=== PATIENT | female | born 1955 | race Native Hawaiian/Other Pacific Islander ===

== ENCOUNTER 2017-03-16 08:53 | Outpatient (CLI) | payer OTHER | END 2017-03-16 19:43 | disposition home or self-care (01) | LOC: RAD 08:53 | DX: M81.0 Age-related osteoporosis without current pathological fracture (principal) ==

== ENCOUNTER 2017-09-08 13:42 | Emergency (ER) | payer OTHER ==
[~2017-09-08] VITALS: Ht 152.4 cm; Wt 99.8 kg
[2017-09-08 14:44] LABS: PLATELET COUNT 268 K/uL (152-353)
[2017-09-08 14:48] LABS: POTASSIUM 3.4 mmol/L (3.6-5.2); SODIUM 138 mmol/L (136-145)
[2017-09-08 15:49] LABS: PARTIAL THROMBOPLASTIN TIME 24.7 SECONDS (24.5-33.6)
[2017-09-08 17:10] VITALS: BP 180/88; TEMP 98.3
== END 2017-09-08 17:21 | disposition home or self-care (01) ==
LOC: ED 13:42
PROVIDERS: Emergency Medicine
DX: Z91.14 Patient's other noncompliance with medication regimen (principal); I10 Essential (primary) hypertension; L03.116 Cellulitis of left lower limb; L03.115 Cellulitis of right lower limb; M79.605 Pain in left leg; M79.604 Pain in right leg; I50.9 Heart failure, unspecified
CPT/HCPCS: 36415; 80053; 81000; 82550; 83735; 83880; 84484; 85027; 85379; 85610; 85730; 87077; 87086; 87088; 87186; 96374; 96375; 99284; J0360; J1940

== ENCOUNTER 2017-09-13 10:58 | Emergency (ER) | payer OTHER ==
[~2017-09-13] VITALS: Ht 162.6 cm; Wt 90.7 kg
[2017-09-13 11:05] VITALS: BP 154/79; TEMP 97.9
== END 2017-09-13 11:08 | disposition home or self-care (01) ==
LOC: ED 10:58
DX: R51 Headache (principal); R42 Dizziness and giddiness; H53.8 Other visual disturbances

== ENCOUNTER 2018-09-03 16:28 | Inpatient (IN) | payer OTHER ==
[~2018-09-03] VITALS: Ht 152.4 cm; Wt 100.0 kg
[2018-09-03 16:35] VITALS: BP 220/104; TEMP 100.2
[2018-09-03 17:14] LABS: PLATELET COUNT 304 K/uL (152-353)
[2018-09-03 17:58] LABS: POTASSIUM 3.6 mmol/L (3.6-5.2)
[2018-09-03 23:44] VITALS: BP 155/77; TEMP 98.7
[2018-09-04] VITALS (7 sets, daily range): BP systolic 122–192; BP diastolic 60–73; TEMP 98.1–101.7; Ht 152.4 cm; Wt 100.0 kg
[2018-09-04] MEDS ORDERED: REQUIP XL4 MG PO (07:32)
[2018-09-04] MEDS ORDERED: HYDR10TA47A PO (07:32)
[2018-09-04] MEDS ORDERED: TRAZ100T PO (07:34)
[2018-09-04] MEDS ORDERED: MECLIZINE25 M2 PO (07:35)
[2018-09-04] MEDS ORDERED: CARV25TA PO (07:36)
[2018-09-05] VITALS (12 sets, daily range): BP systolic 81–209; BP diastolic 53–95; TEMP 98.1–99
[2018-09-05 09:33] LABS: PLATELET COUNT 331 K/uL (152-353)
[2018-09-05 09:43] LABS: SODIUM 139 mmol/L (136-145)
[2018-09-05 10:50] LABS: PARTIAL THROMBOPLASTIN TIME 28.2 SECONDS (24.5-33.6)
== END 2018-09-05 13:20 | disposition short-term general hospital (02) | DRG 871 ==
LOC: ED 16:28 → MED/SURG 19:05 → ICU 09-05 09:30
PROVIDERS: Internal Medicine
PROC: 05HM33Z Insertion of Infusion Device into Right Internal Jugular Vein, Percutaneous Approach (ICD-10-PCS; principal; 2018-09-05)
PROC: B543ZZA Ultrasonography of Right Jugular Veins, Guidance (ICD-10-PCS; 2018-09-05)
PROC: 5A1935Z Respiratory Ventilation, Less than 24 Consecutive Hours (ICD-10-PCS; 2018-09-05)
PROC: 0BH17EZ Insertion of Endotracheal Airway into Trachea, Via Natural or Artificial Opening (ICD-10-PCS; 2018-09-05)
DX: A41.02 Sepsis due to Methicillin resistant Staphylococcus aureus (principal); R09.2 Respiratory arrest; I46.9 Cardiac arrest, cause unspecified; L03.211 Cellulitis of face; J32.0 Chronic maxillary sinusitis; D72.828 Other elevated white blood cell count; D64.89 Other specified anemias; B37.2 Candidiasis of skin and nail; G25.81 Restless legs syndrome; I10 Essential (primary) hypertension; K21.9 Gastro-esophageal reflux disease without esophagitis; M85.88 Other specified disorders of bone density and structure, other site; J44.9 Chronic obstructive pulmonary disease, unspecified; I50.9 Heart failure, unspecified; I87.8 Other specified disorders of veins
CPT/HCPCS: 31500; 36415; 36600; 80053; 82550; 82805; 83605; 84484; 85007; 85027; 85379; 85610; 85730; 87040; 87070; 87077; 87185; 87186; 92950; 94002; 94003; 94760; 96374; 99283; C1768; J0171; J0456; J0690; J0696; J1650; J1885; J2175; J2250; J2405; J3370; J3490; J7120

== ENCOUNTER 2018-09-18 17:06 | Emergency (ER) | payer OTHER ==
[~2018-09-18] VITALS: Ht 152.4 cm; Wt 99.8 kg
[~2018-09-18 17:06] MED LIST: CARV25TA PO; HYDR10TA47A PO; MECLIZINE25 M2 PO; REQUIP XL4 MG PO; TRAZ100T PO
[2018-09-18 18:08] LABS: PLATELET COUNT 383 K/uL (152-353)
[2018-09-18 18:14] LABS: POTASSIUM 4.1 mmol/L (3.6-5.2)
[2018-09-18 18:30] LABS: PARTIAL THROMBOPLASTIN TIME 25.6 SECONDS (24.5-33.6)
[2018-09-18 19:36] VITALS: BP 110/93; TEMP 98.5
== END 2018-09-18 19:43 | disposition home or self-care (01) ==
LOC: ED 17:06
PROVIDERS: Family Medicine
DX: G45.8 Other transient cerebral ischemic attacks and related syndromes (principal); F41.8 Other specified anxiety disorders; I50.9 Heart failure, unspecified
CPT/HCPCS: 36591; 80053; 81000; 85027; 85610; 85730; 99283

== ENCOUNTER 2019-06-17 14:25 | Emergency (ER) | payer OTHER ==
[~2019-06-17] VITALS: Ht 152.4 cm; Wt 99.8 kg
[2019-06-17 14:30] VITALS: BP 198/81; TEMP 98.5
== END 2019-06-17 15:16 | disposition home or self-care (01) ==
LOC: ED 14:25
DX: S50.811A Abrasion of right forearm, initial encounter (principal); X58.XXXA Exposure to other specified factors, initial encounter; Y92.89 Other specified places as the place of occurrence of the external cause
CPT/HCPCS: 90471; 90715; 96373; 99282

== ENCOUNTER 2020-07-20 00:21 | Emergency (ER) | payer OTHER ==
[~2020-07-20] VITALS: Ht 152.4 cm; Wt 99.8 kg
[2020-07-20 01:32] LABS: PLATELET COUNT 320 K/uL (152-353)
[2020-07-20 03:55] VITALS: BP 144/49; TEMP 97.9
[2020-07-20 07:21] LABS: PARTIAL THROMBOPLASTIN TIME 25.6 SECONDS (24.5-33.6)
== END 2020-07-20 05:40 | disposition short-term general hospital (02) ==
LOC: ED 00:21
PROVIDERS: Family Medicine
DX: G45.9 Transient cerebral ischemic attack, unspecified (principal); R53.1 Weakness; R51 Headache; E87.6 Hypokalemia; I50.9 Heart failure, unspecified; Z79.899 Other long term (current) drug therapy; W18.39XA Other fall on same level, initial encounter; Y92.015 Private garage of single-family (private) house as the place of occurrence of the external cause
CPT/HCPCS: 80053; 80307; 81000; 83880; 84484; 85027; 85610; 85730; 93005; 96372; 99285; J1885

== ENCOUNTER 2021-06-06 17:42 | Emergency (ER) | payer OTHER ==
[~2021-06-06] VITALS: Ht 152.4 cm; Wt 102.1 kg
[2021-06-06 18:23] LABS: PLATELET COUNT 291 K/uL (152-353)
[2021-06-06 18:32] LABS: POTASSIUM 4.1 mmol/L (3.6-5.2); SODIUM 138 mmol/L (136-145)
[2021-06-06 18:46] LABS: PARTIAL THROMBOPLASTIN TIME 29.5 SECONDS (24.5-33.6)
[2021-06-06 20:54] VITALS: BP 172/86; TEMP 98.1
== END 2021-06-06 20:54 | disposition home or self-care (01) ==
LOC: ED 17:42
PROVIDERS: Hospitalist
DX: I50.9 Heart failure, unspecified (principal); J44.9 Chronic obstructive pulmonary disease, unspecified; J40 Bronchitis, not specified as acute or chronic
CPT/HCPCS: 80053; 82550; 83880; 84484; 85027; 85610; 85730; 93005; 96365; 96372; 96375; 99284; J0360; J0696; J1815; J1940

== ENCOUNTER 2021-06-09 15:25 | Outpatient (CLI) | payer OTHER | END 2021-06-09 21:47 | disposition home or self-care (01) | LOC: RAD 15:25 | PROVIDERS: ATTEND Nurse Practitioner Family | DX: M54.2 Cervicalgia (principal); M54.6 Pain in thoracic spine; M54.5 Low back pain ==

== ENCOUNTER 2021-07-03 17:39 | Outpatient (CLI) | payer OTHER ==
[2021-07-03 18:09] LABS: PLATELET COUNT 271 K/uL (152-353)
[2021-07-03 18:24] LABS: POTASSIUM 3.5 mmol/L (3.6-5.2)
== END 2021-07-03 22:20 | disposition home or self-care (01) ==
LOC: LABW 17:39
PROVIDERS: ATTEND Internal Medicine
DX: N18.30 Chronic kidney disease, stage 3 unspecified (principal)
CPT/HCPCS: 36415; 80069; 81000; 83735; 84550; 85027

== ENCOUNTER 2021-07-04 08:28 | Outpatient (CLI) | payer OTHER | END 2021-07-04 19:27 | disposition home or self-care (01) | LOC: CT 08:28 | PROVIDERS: ATTEND Nurse Practitioner Family | DX: K43.9 Ventral hernia without obstruction or gangrene (principal); Z13.820 Encounter for screening for osteoporosis; Z12.31 Encounter for screening mammogram for malignant neoplasm of breast; R06.09 Other forms of dyspnea; N95.8 Other specified menopausal and perimenopausal disorders | CPT/HCPCS: Q9963 ==

== ENCOUNTER 2021-09-13 03:38 | Inpatient (IN) | payer OTHER ==
[~2021-09-13] VITALS: Ht 157.5 cm; Wt 102.1 kg
[2021-09-13 04:00] VITALS: BP 190/87; TEMP 97.4
[2021-09-13 04:07] LABS: POTASSIUM 3.6 mmol/L (3.6-5.2)
[2021-09-13 04:14] LABS: PLATELET COUNT 289 K/uL (152-353)
[2021-09-13 05:00] VITALS: BP 180/106
[2021-09-13 06:00] VITALS: BP 130/69
[2021-09-13 06:45] VITALS: BP 113/87
[2021-09-13 11:32] VITALS: BP 143/89; TEMP 98.7; Ht 157.5 cm; Wt 102.1 kg
== END 2021-09-13 13:25 | disposition short-term general hospital (02) | DRG 297 ==
LOC: ED 03:47 → ICU 05:07
PROVIDERS: ADMIT Emergency Medicine Emergency Medical Services; ATTEND Internal Medicine
DX: I46.9 Cardiac arrest, cause unspecified (principal); I69.354 Hemiplegia and hemiparesis following cerebral infarction affecting left non-dominant side; I11.0 Hypertensive heart disease with heart failure; I50.9 Heart failure, unspecified; J44.9 Chronic obstructive pulmonary disease, unspecified; K21.9 Gastro-esophageal reflux disease without esophagitis
CPT/HCPCS: 36415; 36600; 51702; 80053; 81000; 82805; 84484; 85007; 85027; 87088; 87635; 93005; 94002; 94003; 94760; 96360; 96361; 96365; 96375; 99285; J0171; J0696; J1940; J2250; J3490; J7120; U0003